=== PATIENT | male | born 1990 | race Caucasian/White ===

== ENCOUNTER → 2021-02-04 11:31 | Outpatient (CLI) | payer OTHER, SELFPAY ==
[2021-02-04 12:31] LABS: Adenovirus,PCR Not Detected (NotDetected); Bordetella Pertussis Not Detected (NotDetected); Chlamydophila Pneumoniae, PCR Not Detected (NotDetected); Coronavirus 19, PCR Not Detected (NotDetected); Coronavirus 229E Not Detected (NotDetected); Coronavirus NL63 Not Detected (NotDetected); Coronavirus OC43 Not Detected (NotDetected); Coronovirus HKU1,PCR Not Detected (NotDetected); Human Metapneumovirus Not Detected (NotDetected); Influenza A, PCR Not Detected (NotDetected); Influenza AH1, 2009 Not Detected (NotDetected); Influenza AH1, PCR Not Detected (NotDetected); Influenza AH3,PCR Not Detected (NotDetected); Influenza B, PCR Not Detected (NotDetected); Mycoplasma Pneumoniae, PCR Not Detected (NotDetected); Parainfluenza 1, PCR Not Detected (NotDetected); Parainfluenza 2, PCR Not Detected (NotDetected); Parainfluenza 3, PCR Not Detected (NotDetected); Parainfluenza 4, PCR Not Detected (NotDetected); Respiratory Syncytial Virus Not Detected (NotDetected); Rhinovirus/Enterovirus Not Detected (NotDetected)
[2021-02-04 12:51] LABS: Basophils # 0.1 K/mm3 (0-0.2); Basophils % 1.8 % (0.1-2.0); Eosinophils # 0.1 K/mm3 (0.0-0.4); Eosinophils % 1.2 % (0.1-12.0); Hematocrit 49.8 % (42.0-52.0); Hemoglobin 16.4 g/dL (14.1-18.0); Lymphocytes # 2.6 K/mm3 (0.7-4.5); Lymphocytes % 32.6 % (10-50); Mean Corpuscular Hemoglobin 28.6 pg (27.0-31.2); Mean Corpuscular Volume 86.8 fl (80-94); Monocytes # 0.4 K/mm3 (0.1-1.0); Neutrophils # 4.7 K/mm3 (1.8-7.8); Neutrophils % 59.5 % (37.0-80.0); Platelet Count 340 K/mm3 (142-424); Red Blood Count 5.73 M/mm3 (4.60-6.20); Red Cell Distribution Width 14.3 % (11.5-17.5); White Blood Count 7.9 K/mm3 (4.8-10.8)
== END ==
PROVIDERS: PCP Family Medicine; Visit Provider Physician Assistant
DX: Z20.822 Contact with and (suspected) exposure to COVID-19 (principal)
CPT/HCPCS: 36415; 85025; 87581; 87632; 87798; C9803; U0003; U0005

== ENCOUNTER 2021-09-14 11:15 | Outpatient (CLI) | payer OTHER, SELFPAY ==
--- NOTE | 2021-09-14 11:19 | US_ITS ---
FINAL REPORT CLINICAL HISTORY: .left testicle pain since yesterday FINDINGS: Technique: Ultrasound images of the testicles were obtained. Findings: The right testicle measures 4.1 x 2.9 x 2.6 cm. The left testicle measures 4.6 x 4.1 x 3.2 cm. No intratesticular mass identified. There is increased vascularity of the left testicle. The left epididymis is somewhat enlarged. IMPRESSION: Increased vascularity of the left testicle with a somewhat enlarged left epididymis that may represent left epididymo-orchitis with a left varicocele. Reviewed, Interpreted and Dictated by Aquiles Todd III, MD Transcribed by Andrea Cunningham Authenticated and [facility]
--- NOTE | 2021-09-14 11:35 | CT_ITS ---
FINAL REPORT CLINICAL HISTORY: left testicular pain since yesterday FINDINGS: Axial CT images of the abdomen and pelvis were obtained without intravenous contrast. Coronal reformatted images were also obtained.This study was performed with techniques to keep radiation doses as low as reasonably achievable (ALARA). Individualized dose reduction techniques using automated exposure control or adjustment of mA and/or kV according to the patient's size were employed. Abdomen: The lung bases are clear. There is no evidence of renal stone or hydronephrosis. There is mild fatty infiltration of the liver. 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 The spleen and pancreas have an unremarkable, unenhanced appearance. There is a small umbilical hernia containing fat. There are multiple sigmoid diverticula. There is wall thickening of the sigmoid colon that is nonspecific. Pelvis: Images of the pelvis reveal no evidence of ureteral dilation or ureteral stone. There is a small right inguinal hernia containing fat. IMPRESSION: Nonspecific wall thickening of the sigmoid colon could represent muscular hypertrophy versus inflammation. Diverticulosis without evidence of diverticulitis. Reviewed, Interpreted and Dictated by Aquiles Todd III, MD Transcribed by Andrea Cunningham Authenticated and [facility]
[2021-09-14 13:13] LABS: Microscopic, Urine URINE MICROSCOPIC (MICROSCOPIC)
[2021-09-14 13:38] LABS: Basophils # 0.1 K/mm3 (0-0.2); Basophils % 0.6 % (0.1-2.0); Eosinophils % 0.2 % (0.1-12.0); Hematocrit 49.6 % (42.0-52.0); Hemoglobin 16.4 g/dL (14.1-18.0); Lymphocytes # 1.8 K/mm3 (0.7-4.5); Lymphocytes % 10.6 % (10-50); Mean Corpuscular HGB Conc 33.1 g/dL (31.8-35.4); Mean Corpuscular Hemoglobin 28.8 pg (27.0-31.2); Mean Corpuscular Volume 87.1 fl (80-94); Mean Platelet Volume 7.8 fl (7.4-10.4); Monocytes % 5.6 % (1.7-9.3); Neutrophils # 14.2 K/mm3 (1.8-7.8); Platelet Count 371 K/mm3 (142-424); Red Blood Count 5.69 M/mm3 (4.60-6.20); Red Cell Distribution Width 13.9 % (11.5-17.5); White Blood Count 17.1 K/mm3 (4.8-10.8)
[2021-09-14 13:39] LABS: MANUAL DIFFERENTIAL MANUAL DIFFERENTIAL (MANUAL DIFF)
[2021-09-14 13:45] VITALS: BP 157/83; PULSE 94; RESP 18; O2SAT 100
[2021-09-14 13:45] LABS: Appearance,Urine CLEAR (Clear); Blood, Urine Negative (Negative); Color,Urine YELLOW (Yellow); Glucose,Urine (UA) Negative (Negative); Ketones,Urine Negative (Negative); Leukocyte Esterase,Urine Negative (Negative); Nitrate,Urine Negative (Negative); PH,Urine 5.5 (5.0-8.5); Protein,Urine Negative (Negative); Specific Gravity, Urine >= 1.030 (1.005-1.030)
[2021-09-14 13:58] LABS: Bilirubin,Urine 1+ (Negative)
[2021-09-14 14:08] LABS: Bacteria,Urine Trace /lpf; Mucus,Urine 1+ /lpf; Squamous Epithelial Cell,Urine Occasional #/hpf (0-5)
[2021-09-14 15:10] LABS: Blood Urea Nitrogen 12 mg/dl (9-20); Calcium 9.5 mg/dl (8.4-10.2); Carbon Dioxide 26 mmol/L (22.0-30.0); Chloride 102 mmol/L (98-107); Estimated Glomerular Filt Rate 98 ml/min (>60); GFR (African American) 119 ML/MIN (>60); Glucose 93 mg/dl (74-100); Sodium 137 mmol/L (136-145)
[2021-09-14 15:53] LABS: Lymphocytes % 13 % (10-50); Neutrophils % 87 % (42-76); Total Cells Counted 100
[2021-09-14 15:57] LABS: Giant Platelets 1+; Platelet Estimate Normal; Spherocytes 2+
== END 2021-09-14 14:05 | disposition home or self-care (01) ==
LOC: RAD 11:16 → INF 13:34
PROVIDERS: PCP Family Medicine; Visit Provider Surgery
DX: N50.819 Testicular pain, unspecified (principal); N50.89 Other specified disorders of the male genital organs
CPT/HCPCS: 36415; 74176; 76870; 80048; 81001; 85007; 85025; 96372; J0696